=== PATIENT | male | born 1990 | race Caucasian/White ===

== ENCOUNTER 2017-05-03 00:05 | Emergency (ER) | payer SELFPAY ==
[2017-05-03 00:09] VITALS: BP 149/77
[2017-05-03] MEDS ORDERED: Ketorolac INJ* 60 MG/2 ML VIAL IM ONE (01:02)
--- NOTE | 2017-05-03 07:40 | RAD ---
HISTORY: Left shoulder pain COMPARISONS: None VIEWS: 4, Frontal internal rotation, external rotation, outlet, and axillary views of the left shoulder FINDINGS: BONE DENSITY: Normal. BONES: There is no displaced fracture. JOINTS: There is no arthropathy. ALIGNMENT: There is no dislocation. SOFT TISSUES: Unremarkable. OTHER FINDINGS: None. IMPRESSION: NO ACUTE OSSEOUS INJURY. IF SYMPTOMS PERSIST, RECOMMEND REPEAT IMAGING.
--- NOTE | 2017-05-30 20:21 | ED ---
Makayla Valdovinos Alfonso, scribed for Adalid Maya MD on 05/03/17 at 0131 . Upper Extremity Pain - HPI Summary HPI Summary: This patient is a 26 year old M presenting to [facility] with a chief complaint of left shoulder pain with sudden onset at 1700 after setting his child down in car seat. The pain radiates to his left upper back. The patient rates the pain 8 /10 in severity. Symptoms aggravated by coughing and movement of LUE. Symptoms alleviated by nothing. He has taken 600mg Ibuprofen at 17:30 and 1000mg Tylenol at 20:00 to no relief. Patient reports neck pain. Patient denies left-sided numbness, tingling, and weakness. - History of Current Complaint Chief Complaint: EDExtremityUpper Stated Complaint: BACK PAIN Time Seen by Provider: 05/03/17 00:53 Hx Obtained From: Patient Onset/Duration: Started Hours Ago - 1700, Still Present Timing: Constant, Lasting Hours Severity Currently: Severe Pain Location: Shoulder - left Aggravating Factor(s): Movement - LUE, Other - coughing Alleviating Factor(s): Nothing Associated Signs & Symptoms: Positive: Other - neck pain. Patient denies left- sided numbness, tingling, and weakness - Allergies/Home Medications Allergies/Adverse Reactions: Allergies Allergy/AdvReac Type Severity Reaction Status Date / Time No Known Allergies Allergy Verified 05/03/17 00:09 PMH/Surg Hx/FS Hx/Imm Hx Endocrine/Hematology History: Denies: Hx Diabetes, Hx Thyroid Disease Cardiovascular History: Denies: Hx Hypertension Respiratory History: Reports: Hx Asthma Denies: Hx Chronic Obstructive Pulmonary Disease (COPD) GI History: Denies: Hx Ulcer Psychiatric History: Reports: Hx Substance Abuse - heroin - Immunization History Date of Influenza Vaccine: has not yet received Infectious Disease History: Yes Infectious Disease History: Reports: 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 Denies: Hx Clostridium Difficile, Hx Hepatitis, Hx Human Immunodeficiency Virus (HIV), Hx Shingles, Hx Tuberculosis, Hx Known/Suspected VRE, Hx Known/ Suspected VRSA, History Other Infectious Disease, Traveled Outside the [place] in Last 30 Days - Family History Known Family History: Positive: Hypertension Negative: Diabetes, Respiratory Disease, Blood Disorder - Social History Alcohol Use: None Hx Substance Use: Yes - none in the last 5 years Substance Use Type: Reports: None Substance Use Comment - Amount & Last Used: past - heroin (5 years ago) Hx Tobacco Use: Yes Smoking Status (MU): Current Every Day Smoker Type: Cigarettes Amount Used/How Often: 1 pk/day Have You Smoked in the Last Year: Yes Review of Systems Negative: Fever Musculoskeletal: Other - left shoulder and neck pain Neurological: Other - negative left-sided numbness, tingling, and weakness. All Other Systems Reviewed And Are Negative: Yes Physical Exam - Summary Physical Exam Summary: Appearance: Well-appearing, Well-nourished Skin: Warm, Dry, No rash Eyes: Normal, PERRL, EOMI, sclera anicteric ENT: Normal Neck: Supple, nontender Respiratory: Clear to auscultation Cardiovascular: S1, S2, no murmur, no rub, no gallop Abdomen: Soft, nontender, no organomegaly Bowel sounds: Present Musculoskeletal: No edema, pulses symmetrical. Pain with motion of left shoulder abduction internal and interval rotation. Symmetric reflexes. Neck FROM. Normal sensation. Normal intrinsic muscles of hand. Abduction 90 degrees. Neurological: Normal, A&Ox3, cranial nerves II-XII WNL, follows commands, gait not tested, sensation intact to pin and light touch Psychiatric: affect normal, behavior appropriate, dressed appropriately, judgment intact Triage Information Reviewed: Yes Vital Signs On Initial Exam: Initial Vitals Temp Pulse Resp BP Pulse Ox 97.9 F 82 14 149/77 98 05/03/17 00:07 05/03/17 00:07 05/03/17 00:07 05/03/17 00:07 05/03/17 00:07 Vital Signs Reviewed: Yes Diagnostics - Vital Signs Vital Signs Temp Pulse Resp BP Pulse Ox 05/03/17 00:07 97.9 F 82 14 149/77 98 - Laboratory Lab Statement: Any lab studies that have been ordered have been reviewed, and results considered in the medical decision making process. - Radiology Shoulder XR Radiology Interpretation Completed By: ED Physician - No acute findings. Course/Dx - Course Assessment/Plan: Patient will be discharged with outpatient follow up. The patient is agreeable with this plan. - Diagnoses Provider Diagnoses: Tendonitis of shoulder, left Discharge - Discharge Plan Condition: Good Disposition: HOME Prescriptions: Meloxicam [Mobic] 15 mg PO DAILY WITH MEAL PRN 14 Days #14 tab PRN Reason: Pain Patient Education Materials: Tendinitis (ED) Forms: *Work Release Referrals: No Primary Care Phys,NOPCP [Primary Care Provider] - Additional Instructions: off work until evaluated by ortho The documentation as recorded by the Makayla kim Alfonso accurately reflects the service I personally performed and the decisions made by me, Adalid Maya MD.
== END 2017-05-03 01:57 | disposition home or self-care (01) ==
LOC: ED 00:05
DX: M75.92 Shoulder lesion, unspecified, left shoulder (principal); R05 Cough; M54.2 Cervicalgia; F17.210 Nicotine dependence, cigarettes, uncomplicated
CPT/HCPCS: 96372; 99282; J1885

== ENCOUNTER 2018-09-09 21:55 | Emergency (ER) | payer BC ==
--- NOTE | 2018-09-09 22:55 | ED ---
Upper Extremity Pain - HPI Summary HPI Summary: Patient complains of sudden onset of right wrist pain starting last night. Pain described as constant, progressive. Patient states he took ibuprofen 800 mg this morning with no relief. Denies trauma, fever, cough, sore throat, CP, SOB, N/V/V abdominal pain, change in urine, change in BM. Medical history is none. - History of Current Complaint Chief Complaint: EDExtremityUpper Stated Complaint: RIGHT HAND/WRIST INJURY PER PT Time Seen by Provider: 09/09/18 22:35 Hx Obtained From: Patient Mechanism Of Injury: Unknown Onset/Duration: Started Hours Ago Timing: Constant Severity Initially: Moderate Severity Currently: Moderate Pain Location: Wrist Character: Aching, Throbbing Aggravating Factor(s): Movement Alleviating Factor(s): Nothing Associated Signs & Symptoms: Positive: Negative - Allergies/Home Medications Allergies/Adverse Reactions: Allergies Allergy/AdvReac Type Severity Reaction Status Date / Time No Known Allergies Allergy Verified 09/09/18 22:20 PMH/Surg Hx/FS Hx/Imm Hx Endocrine/Hematology History: Denies: Hx Diabetes, Hx Thyroid Disease Cardiovascular History: Denies: Hx Hypertension Respiratory History: Reports: Hx Asthma Denies: Hx Chronic Obstructive Pulmonary Disease (COPD) GI History: Denies: Hx Ulcer History: Denies: Hx Dialysis Sensory History: Denies: Hx Eye Prosthesis Opthamlomology History: Denies: Hx Legally Blind EENT History: Denies: Hx Deafness Neurological History: Denies: Hx Dementia Psychiatric History: Reports: Hx Substance Abuse - heroin Denies: Hx Autism - Immunization History Date of Influenza Vaccine: has not yet received Infectious Disease History: No Infectious Disease History: Reports: 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 Denies: Hx Clostridium Difficile, Hx Hepatitis, Hx Human Immunodeficiency Virus (HIV), Hx Shingles, Hx Tuberculosis, Hx Known/Suspected VRE, Hx Known/ Suspected VRSA, History Other Infectious Disease, Traveled Outside the [place] in Last 30 Days - Family History Known Family History: Positive: Hypertension Negative: Diabetes, Respiratory Disease, Blood Disorder - Social History Alcohol Use: None Hx Substance Use: Yes - none in the last 5 years Substance Use Type: Reports: None Substance Use Comment - Amount & Last Used: past - heroin (5 years ago) Smoking Status (MU): Current Every Day Smoker Type: Cigarettes Amount Used/How Often: 1 pk/day Have You Smoked in the Last Year: Yes Review of Systems Constitutional: Negative Eyes: Negative ENT: Negative Cardiovascular: Negative Respiratory: Negative Gastrointestinal: Negative Genitourinary: Negative Musculoskeletal: Other Skin: Negative Neurological: Negative Psychological: Normal All Other Systems Reviewed And Are Negative: Yes Physical Exam - Summary Physical Exam Summary: No erythema, ecchymosis, swelling, deformity, wound noted to right wrist. Mild pain with palpation of right wrist at lateral border. No pain with flexion or extension. Some pain with abduction. PMS intact distally. Hospice Physician strength normal. Triage Information Reviewed: Yes Vital Signs On Initial Exam: Initial Vitals Temp Pulse Resp BP Pulse Ox 98.0 F 82 16 144/81 97 09/09/18 22:15 09/09/18 22:15 09/09/18 22:15 09/09/18 22:15 09/09/18 22:15 Vital Signs Reviewed: Yes Appearance: Positive: Well-Appearing Skin: Positive: Warm Head/Face: Positive: Normal Head/Face Inspection Eyes: Positive: Normal Neck: Positive: Supple Respiratory/Lung Sounds: Positive: Clear to Auscultation Cardiovascular: Positive: Normal Abdomen Description: Positive: Nontender Musculoskeletal: Positive: Normal Neurological: Positive: Normal Psychiatric: Positive: Normal AVPU Assessment: Alert - Taco Coma Scale Best Eye Response: 4 - Spontaneous Best Motor Response: 6 - Obeys Commands Best Verbal Response: 5 - Oriented Coma Scale Total: 15 Diagnostics - Vital Signs Vital Signs Temp Pulse Resp BP Pulse Ox 09/09/18 22:15 98.0 F 82 16 144/81 97 - Laboratory Lab Statement: Any lab studies that have been ordered have been reviewed, and results considered in the medical decision making process. Course/Dx - Course Course Of Treatment: Patient complains of sudden onset of right wrist pain starting last night. Pain described as constant, progressive. Patient states he took ibuprofen 800 mg this morning with no relief. Denies trauma, fever, cough, sore throat, CP, SOB, N/V/V abdominal pain, change in urine, change in BM. Medical history is none. Physical exam:No erythema, ecchymosis, swelling, deformity, wound noted to right wrist. Mild pain with palpation of right wrist at lateral border. No pain with flexion or extension. Some pain with abduction. PMS intact distally. Hospice Physician strength normal. Vital signs within normal limits. Patient placed in splint. Advised rest, ibuprofen, ice. - Diagnoses Provider Diagnoses: Wrist strain Discharge - Sign-Out/Discharge Documenting (check all that apply): Patient Departure Patient Received Moderate/Deep Sedation with Procedure: No - Discharge Plan Condition: Stable Disposition: HOME Patient Education Materials: Tendinitis (ED) Forms: *Work Release Referrals: Gerardo Bruno MD [Primary Care Provider] - Additional Instructions: Use supportive brace as directed. Take ibuprofen for pain and inflammation. Use ice. Rest the right wrist. Return to the ED for any new or worsening symptoms. - Billing Disposition and Condition Condition: STABLE Disposition: Home
[2018-09-09 23:10] VITALS: BP 135/83
== END 2018-09-09 23:09 | disposition home or self-care (01) ==
LOC: ED 21:55
DX: S66.911A Strain of unspecified muscle, fascia and tendon at wrist and hand level, right hand, initial encounter (principal); M25.531 Pain in right wrist; F17.210 Nicotine dependence, cigarettes, uncomplicated; Z86.14 Personal history of Methicillin resistant Staphylococcus aureus infection; X58.XXXA Exposure to other specified factors, initial encounter; Y92.9 Unspecified place or not applicable
CPT/HCPCS: 99281

== ENCOUNTER 2019-02-24 09:46 | Emergency (ER) | payer BC ==
[2019-02-24] MEDS ORDERED: Famotidine IV* 10 MG/ML 2 ML (20 mg) IV SLOW PU ONE (10:01)
[2019-02-24] MEDS ORDERED: Ondansetron INJ* 2 MG/ML VIAL IV ONE (10:01)
[2019-02-24 10:32] LABS: ABS Basophils 0.1 10^3/ul (0-0.2); ABS Eosinophils 0.2 10^3/ul (0-0.6); ABS Lymphocytes 2.8 10^3/ul (1.0-4.8); ABS Monocytes 0.9 10^3/ul (0-0.8); ABS Neutrophils 9.1 10^3/ul (1.5-7.7); Eosinophil % 1.7 %; Hematocrit 46 % (42-52); Hemoglobin 16.2 g/dL (14.0-18.0); Lymphocyte % 21.5 %; Mean Corpuscular HGB Conc 35 g/dL (31-36); Mean Corpuscular Hemoglobin 31 pg (27-31); Mean Corpuscular Volume 87 fL (80-94); Mean Platelet Volume 7.4 fL (7.4-10.4); Platelet Count 271 10^3/uL (150-450); Red Blood Count 5.31 10^6 /uL (4.18-5.48); Red Cell Distribution Width 13 % (10-15)
[2019-02-24] MEDS ORDERED: fentaNYL* 50 MCG/ML 2 ML VIAL (100 MCG VIAL) IV SLOW PU ONE ×2 (10:33→12:15)
--- NOTE | 2019-02-24 10:40 | ED ---
Abdominal Pain/Male - HPI Summary HPI Summary: This pt is a 28 y/o male presenting to [facility] c/o sudden onset of abd pain today. He reports he woke up with abd pain at 0900 today. He notes he felt fine when he went to bed last night. His abd pain is described in the upper abdomen. He reports never having this pain in the past. Associated symptoms of nausea. Denies urinary symptoms. He also notes his left arm is numb currently. Denies any PMHx. He does not take any medications on a daily basis. NKDA. Pt admits to smoking cigarettes and occasional marijuana use. The last time he smoked was last night. - History of Current Complaint Chief Complaint: EDAbdPain Stated Complaint: SHARP ABDOMINAL PAIN PER PT Hx Obtained From: Patient Onset/Duration: Lasting Hours, Still Present Timing: Lasting Hours Severity Currently: Severe Pain Intensity: 10 Pain Scale Used: 0-10 Numeric Location: Epigastric Radiates: No Character: Sharp Aggravating Factor(s): Nothing Alleviating Factor(s): Nothing Associated Signs And Symptoms: Positive: Nausea. Negative: Fever, Urinary Symptoms - Allergies/Home Medications Allergies/Adverse Reactions: Allergies Allergy/AdvReac Type Severity Reaction Status Date / Time No Known Allergies Allergy Verified 02/24/19 15:36 PMH/Surg Hx/FS Hx/Imm Hx Endocrine/Hematology History: Denies: Hx Diabetes, Hx Thyroid Disease Cardiovascular History: Denies: Hx Hypertension Respiratory History: Reports: Hx Asthma Denies: Hx Chronic Obstructive Pulmonary Disease (COPD) GI History: Denies: Hx Ulcer History: Denies: Hx Dialysis Sensory History: Denies: Hx Eye Prosthesis, Hx Legally Blind, Hx Deafness Opthamlomology History: Denies: Hx Eye Prosthesis, Hx Legally Blind Neurological History: Denies: Hx Dementia Psychiatric History: Reports: Hx Substance Abuse - heroin Denies: Hx Autism - Immunization History Date of Influenza Vaccine: has not yet received Infectious Disease History: No Infectious Disease History: Reports: 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 Denies: Hx Clostridium Difficile, Hx Hepatitis, Hx Human Immunodeficiency Virus (HIV), Hx Shingles, Hx Tuberculosis, Hx Known/Suspected VRE, Hx Known/ Suspected VRSA, History Other Infectious Disease, Traveled Outside the [place] in Last 30 Days - Family History Known Family History: Positive: Hypertension Negative: Diabetes, Respiratory Disease, Blood Disorder - Social History Alcohol Use: None Hx Substance Use: Yes - none in the last 5 years Substance Use Type: Reports: Marijuana Substance Use Comment - Amount & Last Used: past - heroin (5 years ago) Hx Tobacco Use: Yes Smoking Status (MU): Heavy Every Day Tobacco Smoker Type: Cigarettes Amount Used/How Often: 1 pk/day Have You Smoked in the Last Year: Yes Review of Systems Negative: Fever Positive: Abdominal Pain, Nausea Positive: no symptoms reported Positive: Numbness - left arm All Other Systems Reviewed And Are Negative: Yes Physical Exam - Summary Physical Exam Summary: Constitutional: Well-developed, Well-nourished, Alert. (-) Distressed Skin: Warm, Dry HENT: Normocephalic; Atraumatic Eyes: Conjunctiva normal Neck: Musculoskeletal ROM normal neck. (-) JVD, (-) Stridor, (-) Tracheal deviation Cardio: Rhythm regular, rate normal, Heart sounds normal; Intact distal pulses; The pedal pulses are 2+ and symmetric. Radial pulses are 2+ and symmetric. Pulmonary/Chest wall: Effort normal. (-) Respiratory distress, (-) Wheezes, (-) Rales Abd: Soft, RUQ and epigatric tenderness, (-) Distension, (-) Guarding, (-) Rebound Musculoskeletal: (-) Edema Neuro: Alert, Oriented x3 Psych: Mood and affect Normal Triage Information Reviewed: Yes Vital Signs On Initial Exam: Initial Vitals Temp Pulse Resp BP Pulse Ox 96.6 F 69 18 119/76 97 02/24/19 09:48 02/24/19 09:48 02/24/19 09:48 02/24/19 09:48 02/24/19 09:48 Vital Signs Reviewed: Yes Procedures - Sedation Patient Received Moderate/Deep Sedation with Procedure: No Diagnostics - Vital Signs Vital Signs Temp Pulse Resp BP Pulse Ox 02/24/19 09:48 96.6 F 69 18 119/76 97 - Laboratory Result Diagrams: 02/24/19 10:25 02/24/19 10:25 Lab Statement: Any lab studies that have been ordered have been reviewed, and results considered in the medical decision making process. Re-Evaluation - Re-Evaluation First Eval Re-Evaluation Time: 12:04 Comment: Pt is vomiting. Will give pt antiemetic. Second Eval Re-Evaluation Time: 12:42 Comment: Pt would like to leave AMA. Abdominal Pain Male Course/Dx - Course Assessment/Plan: Pt is a 28 y/o male presenting to [facility] c/o sudden onset of upper abd pain and nausea today. He reports he woke up with abd pain at 0900 today. He notes he felt fine when he went to bed last night. His abd pain is described in the upper abdomen. In the ED course the pt was given lactated ringers, Zofran, fentanyl, Pepcid. Lab results are basically unremarkable. Will obtain CT abdomen/pelvis with contrast. Pt refused CT. Pt is requesting to leave against medical advice and signed AMA paperwork. - Diagnoses Provider Diagnoses: Abdominal pain Discharge ED - Sign-Out/Discharge Documenting (check all that apply): Patient Departure - AMA - Discharge Plan Condition: Stable Disposition: AGAINST MEDICAL ADVICE Referrals: Gerardo Bruno MD [Primary Care Provider] - - Billing Disposition and Condition Condition: STABLE Disposition: Against Medical Advice - Attestation Statements Document Initiated by Lauren: Yes Documenting Scribe: Lynne Mendiola Provider For Whom Lauren is Documenting (Include Credential): Jaxson Rivero MD Scribe Attestation: I, Lynne Mendiola, scribed for Jaxson Rivero MD on 02/24/19 at 1910. Scribe Documentation Reviewed: Yes Provider Attestation: The documentation as recorded by the scribLynne castrejon accurately reflects the service I personally performed and the decisions made by me, Jaxson Rivero MD Status of Scribe Document: Viewed
[2019-02-24 10:56] LABS: Albumin 4.4 g/dL (3.2-5.2); Albumin/Globulin Ratio 1.9 (1-3); BUN/Creatinine Ratio 8.9 (8-20); Calcium 9.6 mg/dL (8.6-10.3); EGFR African American 106.4 (>60); Globulin 2.3 g/dL (2-4); Indirect Bilirubin 0.3 mg/dL (0.3-1.0); Magnesium 2.1 mg/dL (1.9-2.7); Potassium 3.8 mmol/L (3.5-5.0); Total Bilirubin 0.4 mg/dL (0.2-1.0); Total Protein 6.7 g/dL (6.4-8.9)
[2019-02-24] MEDS ORDERED: Lactated Ringers 1000 ML Bag* 1,000 ML IV ONE (11:00)
[2019-02-24 11:05] LABS: Urine Appearance Cloudy; Urine Bacteria Absent (Absent); Urine Bilirubin Negative (Negative); Urine Blood Negative (Negative); Urine Color Amber; Urine Glucose Negative (Negative); Urine Ketones Negative (Negative); Urine Nitrite Negative (Negative); Urine Protein 1+(30 mg/dL) (Negative); Urine Red Blood Cell Trace(0-2/hpf) (Absent); Urine Specific Gravity 1.026 (1.010-1.030); Urine Urobilinogen Negative (Negative); Urine White Blood Cell Trace(0-5/hpf) (Absent)
[2019-02-24 11:41] LABS: Urine Benzodiazepine Screen None Detected (None Detect); Urine Opiates Screen None Detected (None Detect)
[2019-02-24] MEDS ORDERED: Iohexol 300* (CONTRAST) 10 ML SDV IV ONE (12:02)
[2019-02-24] MEDS ORDERED: Metoclopramide IV* 5 MG/ML 2 ML VIAL IV SLOW PU ONE (12:03)
[2019-02-24 12:34] VITALS: BP 128/69
== END 2019-02-24 12:38 | disposition left against medical advice (07) ==
LOC: ED 09:46
DX: R10.13 Epigastric pain (principal); R11.2 Nausea with vomiting, unspecified; F17.210 Nicotine dependence, cigarettes, uncomplicated
CPT/HCPCS: 36415; 80048; 80076; 80307; 81003; 81015; 83690; 83735; 85025; 87086; 96361; 96374; 96375; 99283; J2405; J2765; J3010

== ENCOUNTER 2019-02-24 15:26 | Emergency (ER) | payer BC ==
[2019-02-24 15:43] VITALS: BP 138/83
--- NOTE | 2019-02-24 15:45 | UC ---
Abdominal Pain Male HPI - HPI Summary HPI Summary: 28 yo male presents with RLQ abdominal pain. He tells me that last night he developed upper abdominal pain that was severe accompanied by nausea and chills. He tells me that he was in the ER this morning and had pain medication and labwork performed and was told that his white count was slightly elevated. The ER wanted to perform a CT for further evaluation of his abdominal pain, but pt tells me that he received a call that his step son needed to leave school and pt did not want to wait for the CT - therefore left AMA. He is here now stating that his upper abdominal pain has resolved and he only has mild RLQ pain. He feels much better overall without anymore nausea. Denies fever, SOB, chest pain, vomiting, dysuria, diarrhea. - History of Current Complaint Chief Complaint: UCAbdominalPain Stated Complaint: ABD PAIN, VOMITING Time Seen by Provider: 02/24/19 15:45 Hx Obtained From: Patient Onset/Duration: Sudden Onset Severity Initially: Severe Severity Currently: Mild Pain Intensity: 3 Pain Scale Used: 0-10 Numeric - Allergies/Home Medications Allergies/Adverse Reactions: Allergies Allergy/AdvReac Type Severity Reaction Status Date / Time No Known Allergies Allergy Verified 02/24/19 15:36 Home Medications: Home Medications Bisacodyl [Laxative] 5 mg PO Q12H PRN 02/24/19 [History Confirmed 02/24/19] Ondansetron INJ* [Zofran 2 MG/ML Inj*] 4 mg .SEE ORDER 02/24/19 [History] PMH/Surg Hx/FS Hx/Imm Hx Respiratory History: Asthma - Surgical History Surgical History: None - Family History Known Family History: Positive: Hypertension Negative: Diabetes, Respiratory Disease, Blood Disorder - Social History Lives: With Family Alcohol Use: None Substance Use Type: Marijuana Substance Use Comment - Amount & Last Used: past - heroin (5 years ago) Smoking Status (MU): Heavy Every Day Tobacco Smoker Type: Cigarettes Amount Used/How Often: 1 pk/day Have You Smoked in the Last Year: Yes Household Exposure Type: Cigarettes - Immunization History Most Recent Influenza Vaccination: none Review of Systems All Other Systems Reviewed And Are Negative: No Constitutional: Positive: Chills Skin: Positive: Negative Eyes: Positive: Negative ENT: Positive: Negative Respiratory: Positive: Negative Cardiovascular: Positive: Negative Gastrointestinal: Positive: Abdominal Pain, Nausea Genitourinary: Positive: Negative Motor: Positive: Negative Neurological: Positive: Negative Psychological: Positive: Negative Physical Exam - Summary Physical Exam Summary: GENERAL: NAD. WDWN. No pain distress. SKIN: No rashes, sores, lesions, or open wounds. NECK: Supple. Nontender. No lymphadenopathy. CHEST: CTAB. No r/r/w. No accessory muscle use. Breathing comfortably and in no distress. CV: RRR. Without m/r/g. Pulses intact. Cap refill <2seconds ABDOMEN: Mild RLQ mcburney point tenderness. Soft. NTTP. No distention or guarding. No CVA tenderness. Bowel sounds present. Negative psoas and rovsings NEURO: Alert. PSYCH: Age appropriate behavior. Triage Information Reviewed: Yes Vital Signs: Initial Vital Signs Temp 98.9 F 02/24/19 15:39 Pulse 104 02/24/19 15:39 Resp 18 02/24/19 15:39 BP 138/83 02/24/19 15:39 Pulse Ox 98 02/24/19 15:39 Vital Signs Reviewed: Yes Abd Pain Male Course/Dx - Course Course Of Treatment: I discussed with the pt that his symptoms are concerning for appendicitis - especially with him mentioning that his white count was elevated. I strongly recommended that he return to the ER for further evaluation. He declined and said that he feels better and wishes to monitor his symptoms and if they worsen he will go. I made him aware that waiting with appendicitis could result in fever, spreading infection, sepsis, permanent loss of function and/or . He voiced understanding and continued to decline going back to the ED. - Differential Dx/Clinical Impression Provider Diagnosis: RLQ abdominal pain Discharge ED - Sign-Out/Discharge Documenting (check all that apply): Patient Departure All imaging exams completed and their final reports reviewed: No Studies - Discharge Plan Condition: Stable Disposition: HOME-RECOMMEND TO ED Referrals: Gerardo Bruno MD [Primary Care Provider] - Additional Instructions: I recommended that you go back to the ER for further evaluation of your right lower quadrant pain. If you choose to watch and monitor your symptoms at home - if you develop increasing pain, nausea, vomiting, or fever - please go to the ER immediately - Billing Disposition and Condition Condition: STABLE Disposition: Home-Recommend to ED
== END 2019-02-24 16:18 | disposition home health service (06) ==
LOC: UCEAST 15:26
DX: R10.31 Right lower quadrant pain (principal); J45.909 Unspecified asthma, uncomplicated; F17.210 Nicotine dependence, cigarettes, uncomplicated
CPT/HCPCS: 99212; G0463

== ENCOUNTER 2019-02-25 11:40 | Inpatient (IN) | payer BC ==
--- NOTE | 2019-02-25 12:54 | ED ---
Abdominal Pain/Male - HPI Summary HPI Summary: Patient is a 28 y/o M presenting to [facility] with complaints of RLQ pain. He was at [facility] yesterday for evaluation of epigastric pain. It was advised that the patient obtain an ABD/PEL CT, but he left AMA as he received a call that his step-son had to leave school as he was injured. Patient did not want to wait for CT. He brought his step-son to [facility] for evaluation, and his partner, who is present in the room for present visit, convinced him to be evaluated at [facility]. He was advised to return to ED for CT ABD/PEL, which he did today. He notes that his pain has radiated from epigastric area to RLQ. He states that he was N/V yesterday, but not today. Pain yesterday is rated 10/10, today's pain is rated 6/10. He denies similar previous episodes of Sx. Last meal is reported to have been last night. He denies PMHx, daily medications, PSHx. Patient notes that he smokes tobacco and marijuana. He denies FMHx of diabetes. Home medications and allergies are reviewed. - History of Current Complaint Chief Complaint: EDAbdPain Stated Complaint: RIGHT SIDE ABDOMINAL PAIN PER PT Time Seen by Provider: 02/25/19 12:52 Hx Obtained From: Patient Onset/Duration: Still Present Timing: Lasting Days Severity Initially: Severe Severity Currently: Moderate Pain Intensity: 6 Pain Scale Used: 0-10 Numeric Location: Discrete At: RLQ Associated Signs And Symptoms: Positive: Nausea, Vomiting - Allergies/Home Medications Allergies/Adverse Reactions: Allergies Allergy/AdvReac Type Severity Reaction Status Date / Time No Known Allergies Allergy Verified 02/24/19 15:36 PMH/Surg Hx/FS Hx/Imm Hx Endocrine/Hematology History: Denies: Hx Diabetes, Hx Thyroid Disease Cardiovascular History: Denies: Hx Hypertension Respiratory History: Reports: Hx Asthma Denies: Hx Chronic Obstructive Pulmonary Disease (COPD) GI History: Denies: Hx Ulcer History: Denies: Hx Dialysis, Hx Renal Disease Sensory History: Denies: Hx Eye Prosthesis, Hx Legally Blind, Hx Deafness Opthamlomology History: Denies: Hx Eye Prosthesis, Hx Legally Blind Neurological History: Denies: Hx Dementia Psychiatric History: Reports: Hx Substance Abuse - heroin Denies: Hx Autism - Immunization History Date of Influenza Vaccine: has not yet received Infectious Disease History: No Infectious Disease History: Reports: 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 Denies: Hx Clostridium Difficile, Hx Hepatitis, Hx Human Immunodeficiency Virus (HIV), Hx Shingles, Hx Tuberculosis, Hx Known/Suspected VRE, Hx Known/ Suspected VRSA, History Other Infectious Disease, Traveled Outside the [place] in Last 30 Days - Family History Known Family History: Positive: Hypertension Negative: Diabetes, Respiratory Disease, Blood Disorder - Social History Alcohol Use: None Hx Substance Use: Yes - none in the last 5 years Substance Use Type: Reports: Marijuana Substance Use Comment - Amount & Last Used: past - heroin (5 years ago) Hx Tobacco Use: Yes Smoking Status (MU): Heavy Every Day Tobacco Smoker Type: Cigarettes Amount Used/How Often: 1 pk/day Have You Smoked in the Last Year: Yes Review of Systems Negative: Fever - on vitals, temp is 97.7 F Positive: Abdominal Pain, Vomiting, Nausea All Other Systems Reviewed And Are Negative: Yes Physical Exam - Summary Physical Exam Summary: VITAL SIGNS: Reviewed. GENERAL: Patient is a well-developed and nourished male who is lying comfortable in the stretcher. Patient is not in any acute respiratory distress. HEAD AND FACE: No signs of trauma. No ecchymosis, hematomas or skull depressions. No sinus tenderness. EYES: PERRLA, EOMI x 2, No injected conjunctiva, no nystagmus. EARS: Hearing grossly intact. Ear canals and tympanic membranes are within normal limits. MOUTH: Oropharynx within normal limits. NECK: Supple, trachea is midline, no adenopathy, no JVD, no carotid bruit, no c- spine tenderness, neck with full ROM. CHEST: Symmetric, no tenderness at palpation. LUNGS: Clear to auscultation bilaterally. No wheezing or crackles. CVS: Regular rate and rhythm, S1 and S2 present, no murmurs or gallops appreciated. ABDOMEN: Soft, RLQ tenderness. No signs of distention. No rebound, no guarding, and no masses palpated. Bowel sounds are normal. EXTREMITIES: FROM in all major joints, no edema, no cyanosis or clubbing. NEURO: Alert and oriented x 3. No acute neurological deficits. Speech is normal and follows commands. SKIN: Dry and warm. Triage Information Reviewed: Yes Vital Signs On Initial Exam: Initial Vitals Temp Pulse Resp BP Pulse Ox 97.7 F 92 18 116/90 96 02/25/19 11:42 02/25/19 11:42 02/25/19 11:42 02/25/19 11:42 02/25/19 11:42 Vital Signs Reviewed: Yes Procedures - Sedation Patient Received Moderate/Deep Sedation with Procedure: No Diagnostics - Vital Signs Vital Signs Temp Pulse Resp BP Pulse Ox 02/25/19 11:42 97.7 F 92 18 116/90 96 - Laboratory Result Diagrams: 02/25/19 12:32 02/25/19 12:32 Lab Statement: Any lab studies that have been ordered have been reviewed, and results considered in the medical decision making process. - CT ABD/PEL CT CT Interpretation Completed By: Radiologist Summary of CT Findings: IMPRESSION: 1. THE APPENDIX IS SLIGHTLY DILATED. ADDITIONALLY, THERE IS DIFFUSE MUCOSAL THICKENING OF. THE DISTAL SMALL BOWEL. 2. WHILE THE DIFFERENTIAL FOR A DILATED APPENDIX IS EARLY ACUTE APPENDICITIS, GIVEN THE. ASSOCIATED INFLAMMATORY CHANGE OF THE SMALL BOWEL, INFLAMMATORY BOWEL DISEASE SHOULD ALSO. BE CONSIDERED WITHIN THE DIFFERENTIAL. 3. FATTY INFILTRATION OF THE LIVER. THIS REPORT WAS REVIEWED BY DR. MORALES. Abdominal Pain Male Course/Dx - Course Assessment/Plan: Patient is a 28 y/o M presenting to [facility] with complaints of RLQ pain. He was at [facility] yesterday for evaluation of epigastric pain. It was advised that the patient obtain an ABD/PEL CT, but he left AMA as he received a call that his step-son had to leave school as he was injured. Patient did not want to wait for CT. He brought his step-son to [facility] for evaluation, and his partner, who is present in the room for present visit, convinced him to be evaluated at [facility]. He was advised to return to ED for CT ABD/PEL, which he did today. He notes that his pain has radiated from epigastric area to RLQ. He states that he was N/V yesterday, but not today. Pain yesterday is rated 10/10, today's pain is rated 6/10. He denies similar previous episodes of Sx. Last meal is reported to have been last night. He denies PMHx, daily medications, PSHx. Patient notes that he smokes tobacco and marijuana. He denies FMHx of diabetes. Home medications and allergies are reviewed. Blood tests without any significant abnormality except for CRP of 59.7. Urinalysis is negative for UTI. Abdominal and pelvic CT IMPRESSION: 1. THE APPENDIX IS SLIGHTLY DILATED. ADDITIONALLY, THERE IS DIFFUSE MUCOSAL THICKENING OF. THE DISTAL SMALL BOWEL. 2. WHILE THE DIFFERENTIAL FOR A DILATED APPENDIX IS EARLY ACUTE APPENDICITIS, GIVEN THE. ASSOCIATED INFLAMMATORY CHANGE OF THE SMALL BOWEL, INFLAMMATORY BOWEL DISEASE SHOULD ALSO. BE CONSIDERED WITHIN THE DIFFERENTIAL. 3. FATTY INFILTRATION OF THE LIVER. I discussed my physical exam and findings with the physician physician's assistant for Dr. Mejia. The patient is accepted for admission under Dr. Mejia's services. Patient is hemodynamically stable alert oriented 3. - Diagnoses Provider Diagnoses: Appendicitis - Provider Notifications Discussed Care Of Patient With: Joaquin Mejia Time Discussed With Above Provider: 16:56 Instructed by Provider To: Other - 1655 - Patient's case was discussed with Dr. Mejia, who will come to ED to evaluate the patient. 1807 - WALTER Martin of Dr. Mejia, in ED to evaluate the patient. 1850 - Fernando Mcrae reports the patient will be admitted under Dr. Mejia. Discharge ED - Sign-Out/Discharge Documenting (check all that apply): Patient Departure - admit - Discharge Plan Condition: Stable Disposition: ADMITTED TO [facility] - Billing Disposition and Condition Condition: STABLE Disposition: Admitted to [facility] - Attestation Statements Document Initiated by Lauren: Yes Documenting Scribe: SHARA KAUR Provider For Whom Lauren is Documenting (Include Credential): AMRAI MORALES MD Scribe Attestation: ISHARA scribed for AMARI MORALES MD on 02/27/19 at 0922. Scribe Documentation Reviewed: Yes Provider Attestation: The documentation as recorded by the SHARA kim accurately reflects the service I personally performed and the decisions made by me, AMARI MORALES MD Status of Scribe Document: Viewed
[2019-02-25 12:55] LABS: ABS Basophils 0.1 10^3/ul (0-0.2); ABS Eosinophils 0.1 10^3/ul (0-0.6); ABS Lymphocytes 2.7 10^3/ul (1.0-4.8); ABS Monocytes 0.7 10^3/ul (0-0.8); ABS Neutrophils 4.7 10^3/ul (1.5-7.7); Eosinophil % 1.4 %; Hematocrit 45 % (42-52); Hemoglobin 15.4 g/dL (14.0-18.0); Lymphocyte % 32.3 %; Mean Corpuscular HGB Conc 34 g/dL (31-36); Mean Corpuscular Hemoglobin 30 pg (27-31); Mean Corpuscular Volume 88 fL (80-94); Mean Platelet Volume 7.4 fL (7.4-10.4); Platelet Count 250 10^3/uL (150-450); Red Cell Distribution Width 13 % (10-15); White Blood Count 8.3 10^3/uL (3.5-10.8)
[2019-02-25] MEDS ORDERED: NS 0.9% 1000 ML** 1,000 ML IV ONE (13:02)
[2019-02-25 13:12] LABS: Albumin 4.3 g/dL (3.2-5.2); Albumin/Globulin Ratio 1.7 (1-3); BUN/Creatinine Ratio 8.3 (8-20); C Reactive Protein 59.73 mg/L (<8.01); EGFR African American 112.9 (>60); EGFR Non-African American 93.3 (>60); Globulin 2.5 g/dL (2-4); Potassium 3.6 mmol/L (3.5-5.0); Total Bilirubin 0.5 mg/dL (0.2-1.0); Total Protein 6.8 g/dL (6.4-8.9)
[2019-02-25] MEDS ORDERED: Ondansetron INJ* 2 MG/ML VIAL IV ONE (13:26)
[2019-02-25] MEDS ORDERED: Morphine 4 MG/ML VIAL (1 ml) 4 MG/ML VIAL IV ONE ×2 (13:26→18:08)
[2019-02-25] MEDS ORDERED: Iohexol 300* (CONTRAST) 10 ML SDV IV ONE (14:59)
[2019-02-25 15:15] LABS: Urine Appearance Cloudy; Urine Bilirubin Negative (Negative); Urine Blood Negative (Negative); Urine Color Yellow; Urine Glucose Negative (Negative); Urine Ketones Negative (Negative); Urine Nitrite Negative (Negative); Urine Protein Negative (Negative); Urine Specific Gravity 1.017 (1.010-1.030); Urine Urobilinogen Negative (Negative)
[2019-02-25] MEDS ORDERED: Piperacillin/Tazobac ADVAN(*) 3.375 GM in NS 0.9% 100 ML* 100 ML IVPB ONE (19:03)
[2019-02-25] MEDS ORDERED: EPINEPHRINE 1 MG/ML 1 ML VIAL ONE (19:19)
[2019-02-25] MEDS ORDERED: methylPREDNISolone ACETATE 80* 80 MG/ML 1 ML VIAL ONE (19:19)
[2019-02-25] MEDS ORDERED: Bupivacaine 0.5%* 50 ML MDV VIAL ONE (19:19)
[2019-02-25] MEDS ORDERED: Bupivacaine 0.25% W/EPI* 10 ML SDV ONE (20:56)
[2019-02-25] MEDS ORDERED: ZOSYN 3.375 GM x ONE DOSE over 30 miuntes IVPB ×2 (21:00)
[2019-02-25] MEDS ORDERED: Ondansetron INJ* 2 MG/ML VIAL ONE (21:28)
[2019-02-25] MEDS ORDERED: Propofol* 10 MG/ML 20 ML BTL ONE (21:28)
[2019-02-25] MEDS ORDERED: Dexamethasone IV* 4 MG/ML 1 ML (4 MG) ONE (21:28)
[2019-02-25] MEDS ORDERED: Lidocaine 2% PF * 5 ML VIAL ONE (21:28)
[2019-02-25] MEDS ORDERED: fentaNYL* 50 MCG/ML 5 ML VIAL (250 MCG VIAL) ONE (21:28)
[2019-02-25] MEDS ORDERED: Midazolam* 1 MG/ML 5 ML VIAL (5 MG) ONE (21:29)
[2019-02-25] MEDS ORDERED: Cisatracurium* 2 MG/ML MDV 5 ML ONE (21:29)
[2019-02-25] MEDS ORDERED: Neostigmine Methylsulfate* 1 MG/ML 10 ML VIAL (1 mg/ml) ONE (22:12)
[2019-02-25] MEDS ORDERED: Glycopyrrolate IV* 0.2 MG/ML 1 ML VIAL ONE (22:12)
[2019-02-25] MEDS ORDERED: Bacitracin OINTMENT* 0.5% 0.5 oz TUBE ONE (22:17)
[2019-02-25] MEDS ORDERED: Ondansetron INJ* 2 MG/ML VIAL IV PRN ×2 (22:22→22:40)
--- NOTE | 2019-02-25 22:25 | OP ---
Operative Report - Blank - Operative Report Date of Operation: 02/25/19 Note: Pre-OP Diagnoses: acute appendicitis Post-op Diagnosis: same Procedure: Laparoscopic appendectomy Surgeon: Roberto Asst: none Anethesia: GETA EBL: minimal IVF: crystalloid Specimen: appendix Drains: none
[2019-02-25] MEDS ORDERED: Levalbuterol 0.63MG/3ML NEB* UNIT OF USE INH PRN (22:40)
[2019-02-25] MEDS ORDERED: HYDROmorphone INJ1* 1 MG/ML SYRINGE IV PRN (22:40)
[2019-02-25] MEDS ORDERED: Naloxone* 0.4 MG/ML 1 ML VIAL IV PRN (22:40)
[2019-02-25] MEDS: fentaNYL* 50 MCG/ML 2 ML VIAL (100 MCG VIAL) IV PRN ×4 (22:43→23:36)
[2019-02-25] MEDS ORDERED: fentaNYL* 50 MCG/ML 2 ML VIAL (100 MCG VIAL) ONE ×2 (22:43→23:15)
[2019-02-25] MEDS ORDERED: Lactated Ringers 1000 ML Bag* 1,000 ML IV SCH (23:00)
[2019-02-26] MEDS: oxyCODONE/Acetamin 5/325 MG* TAB PO PRN ×2 (00:31→11:51)
[2019-02-26] MEDS: Ibuprofen TAB* 600 MG PO PRN ×2 (01:54→09:54)
--- NOTE | 2019-02-26 03:41 | OP ---
CC: Primary care doctor * DATE OF OPERATION: 02/25/19 - ROOM #331 DATE OF : 89 SURGEON: Joaquin Mejia MD SHEEP KILLER: None. ANESTHESIOLOGIST: Dr. Da Silva. ANESTHESIA: General. PRE-OP DIAGNOSIS: Acute appendicitis. POST-OP DIAGNOSIS: Acute appendicitis. OPERATIVE PROCEDURE: Laparoscopic appendectomy. ESTIMATED BLOOD LOSS: Minimal. FLUIDS: Minimal crystalloid fluid given. SPECIMEN: Appendix. DESCRIPTION OF PROCEDURE: The patient was identified in the preoperative area, marked. I discussed his case. I reviewed his chart including CAT scan and outlined the details of the laparoscopic appendectomy to him. His questions were answered. We discussed the possible complications which include but not limited to, bleeding, infection, injury to adjacent organs, abscess formation, need for open procedure, or additional procedures. The patient was marked, he was taken to the operating room after he voided and he was placed on the operating table in supine position. Preoperative antibiotics had been given in the ER already. General anesthesia was delivered. He had SCDs placed on bilateral lower extremities. The abdominal hair was clipped and then the abdomen was prepped and draped in a standard surgical fashion. A time-out was performed. The folds of the umbilicus were elevated anteriorly and a Veress needle inserted into the abdominal cavity, which was then allowed to insufflate to a pressure of 15 mmHg. The patient tolerated the insufflation well. Umbilical incision was made and an optical 12-mm trocar was inserted into the abdomen. Laparoscope was inserted through this. There was no evidence of injury. The Veress needle had already been removed. Table was repositioned. Two 5-mm trocars were placed in the following positions ; suprapubic and in the left lower quadrant. Tip of the appendix was identified , this was indurated. We were able to get the distal small bowel reflected superiorly. We did some sharp dissection to release the lateral attachments of the small bowel to better appreciate the mesoappendix. We elevated the appendix and took the lateral attachments as well with scissors. Bleeding was scant. Next, a window was made at the base of the appendix and a 30 mm sweet IVAN stapling device was fired through healthy tissue at the base of the cecum. After taking the peritoneum off the mesoappendix, a 30 mm sweet IVAN stapling device was fired through the mesoappendix. Appendix was then placed in an endoscopic retrieval bag and placed off to the side. Review of the appendiceal stump showed no active bleeding. Gauze was inserted and we mopped up this area, there was no evidence of active bleeding. We placed a gauze in the pelvis which showed serous fluid. The gauze was then removed and the appendix was also removed. We did dilated somewhat the umbilical incision to get the appendix out. This was passed off as a specimen and the umbilical port site was closed at the fascial layer with 0 Vicryl suture using a Weck closure device. The abdomen was allowed to collapse. The other trocars removed and the umbilical incision was closed with 3-0 chromic, followed by sterile dressing and the other incisions were closed with 4-0 Monocryl subcuticular sutures followed by Steri- Strips and sterile dressing. [id number]/[facility] #: [id number] YOLANDA
[2019-02-26 11:17] VITALS: BP 115/69
--- NOTE | 2019-02-26 11:47 | DS ---
AMENDED REPORT NOW INCLUDES DESIGNATED COSIGNER - ESIGNED BEFORE ADJUSTMENTS DISCHARGE NOTE/SUMMARY: DATE OF ADMISSION: 02/25/19 DATE OF DISCHARGE: 02/26/19 ATTENDING SURGEON: Dr. Joaquin Mejia.* (DICTATED BY WALTER ARAIZA) ADMISSION DIAGNOSIS: Acute appendicitis. DISCHARGE DIAGNOSIS: Acute appendicitis. HOSPITAL COURSE: The patient, a 28-year-old male, presents to the emergency department with 1-day history of epigastric periumbilical pain, which then became right lower quadrant pain, acutely tender over McBurney's point. The patient was seen and examined in the emergency room. CT scan was suggestive of acute appendicitis. The patient was taken to the operative theater on 02/25/19 for laparoscopic appendectomy. The patient tolerated the procedure well and was transferred to the surgical care unit for postoperative care on 02/26/01. PHYSICAL EXAM: Vital signs were stable. Chest is clear bilaterally. Heart was regular rate and rhythm. The abdomen was soft, nondistended, hypoactive bowel sounds. Incisions were clean, dry and intact with dressings in place. Extremities: His calves are soft bilaterally with no sign or symptom of DVT. The patient was stable. The patient was tolerating clears. Pain was well controlled with p.o. analgesia. The patient is being discharged home today in stable condition. Discharge instructions were reviewed with the patient. Prescription for Percocet was sent to the patient's pharmacy at [facility]. Postop appointment is to be scheduled. The office will call the patient regarding his follow up visit in 7 to 14 days. The patient was also seen and examined by Dr. Mejia this morning. All the patient's questions were answered. The patient will be discharged home in stable condition on 02/26/19. WALTER ARAIZA [id number]/[facility] #: [id number] MTDD
--- NOTE | 2019-02-26 13:07 | PN ---
Progress Note - Progress Note Date of Service: 02/26/19 SOAP: Subjective: POD 1 S/P Lap Appy NAD C/O mod post op pain - flatus[] Objective: Laboratory Results - last 24 hr 02/25/19 02/25/19 02/25/19 12:32 12:32 14:37 Sodium 138 Potassium 3.6 Chloride 107 Carbon Dioxide 27 Anion Gap 4 BUN 8 Creatinine 0.96 Est GFR ( Amer) 112.9 Est GFR (Non-Af Amer) 93.3 BUN/Creatinine Ratio 8.3 Glucose 93 Lactic Acid 0.6 Calcium 9.0 Total Bilirubin 0.50 AST 20 ALT 48 Alkaline Phosphatase 54 C-Reactive Protein 59.73 H Total Protein 6.8 Albumin 4.3 Globulin 2.5 Albumin/Globulin Ratio 1.7 Lipase 36 Urine Color Yellow Urine Appearance Cloudy Urine pH 6.0 Ur Specific [place] 1.017 Urine Protein Negative Urine Ketones Negative Urine Blood Negative Urine Nitrate Negative Urine Bilirubin Negative Urine Urobilinogen Negative Ur Leukocyte Esterase Negative Urine Glucose Negative Temp Pulse Resp BP Pulse Ox 97.9 F 90 18 115/69 97 02/26/19 11:16 02/26/19 11:16 02/26/19 11:51 02/26/19 11:16 02/26/19 11:16 Chest: CTA B/L CVS: RRR ABD: soft, ND, Incisional Tenderness - BS's EXT: Calves soft B/L [] Assessment: POD 1 S/P Lap Appy Stable[] Plan: D/C Home today, Instructions reviewed, post op percocet sent to pharmacy, needs to arrange post op visit all questions answered. Also seen today by Dr Mejia[]
== END 2019-02-26 12:10 | disposition home or self-care (01) | DRG 225 ==
LOC: ED 11:40 → OR 20:36 → SSU 22:22
PROVIDERS: ADMIT Surgery; ATTEND Surgery
PROC: 0DTJ4ZZ Resection of Appendix, Percutaneous Endoscopic Approach (ICD-10-PCS; principal; 2019-02-25 21:45)
DX: K35.80 Unspecified acute appendicitis (principal); F17.210 Nicotine dependence, cigarettes, uncomplicated; K76.0 Fatty (change of) liver, not elsewhere classified; J45.909 Unspecified asthma, uncomplicated; Z86.14 Personal history of Methicillin resistant Staphylococcus aureus infection; Z82.49 Family history of ischemic heart disease and other diseases of the circulatory system
CPT/HCPCS: 36415; 74177; 80053; 81003; 83605; 83690; 85025; 86140; 88304; 96365; 96375; 99283; A9270-GY; J1040; J1100; J2250; J2270; J2405; J2543; J2704; J2710; J3010; J3490; Q9967